=== PATIENT | male | born 1970 | race Caucasian/White ===

== ENCOUNTER 2023-06-24 11:26 | Emergency (ER) | payer BC ==
[2023-06-24 12:03] LABS: #Basophils 0.04 10x3/uL (0.0-0.2); %Basophils 0.3 % (0.0-1.0); %Eosinophils 0.5 % (0.0-10.0); %Lymphocytes 8.2 % (21.0-51.0); %Monocytes 4.2 % (0.0-10.0); %Neutrophils 86.3 % (42.0-75.0); Hematocrit 37.7 % (42.0-52.0); Hemoglobin 11.5 g/dL (14.0-18.0); Mean Corpuscular HGB CONC 30.5 g/dL (32.0-36.0); Mean Corpuscular Hemoglobin 25.4 pg (27.0-31.0); Mean Corpuscular Volume 83.2 fL (78.0-98.0); Mean Platelet Volume 10.7 fL (7.4-10.4); Platelet Count 298 10x3/uL (130-400); RBC Distribution Width 16.1 % (11.5-14.5); Red Blood Cell (RBC) Count 4.53 mill/uL (4.70-6.10)
[2023-06-24 12:27] LABS: Globulin 3.4 g/dL (2.4-3.5)
[2023-06-24 12:31] LABS: ALT (SGPT) 20 U/L (8-55); AST (SGOT) 26 U/L (5-34); Alkaline Phosphatase 96 U/L (40-110); Anion Gap 16 mmol/L (10-20); BUN (Urea Nitrogen) 18 mg/dL (8.4-25.7); Calc. Creatinine Clearance 0 mL/min (70-130); Carbon Dioxide 17 mmol/L (22-29); Chloride 112 mmol/L (98-107); Estimated GFR 56; Glucose 113 mg/dL (70-105); Potassium 3.8 mmol/L (3.5-5.1); Protein, Total 7.4 g/dL (6.0-8.3); Sodium 141 mmol/L (136-145)
[2023-06-24 14:31] LABS: Bilirubin, Total 0.9 mg/dL (0.2-1.2); Calcium 9.5 mg/dL (7.8-10.44)
== END 2023-06-24 16:05 | disposition home or self-care (01) ==
LOC: ERS 11:26
DX: T63.441A Toxic effect of venom of bees, accidental (unintentional), initial encounter (principal); Z55.6 Problems related to health literacy
CPT/HCPCS: 80053; 85025; 93005; 94644; 96372; 96374; 96375